=== PATIENT | female | born 1990 | race Hispanic/Latino ===

== ENCOUNTER 2020-08-09 15:09 | Emergency (ER) | payer OTHER, SELFPAY ==
--- OUTSIDE RECORDS SUMMARY | 2020-08-09 15:17 | XMS REPORT | Continuity of Care Document ---
:1990 Author Organization [facility] t Address [address] [place] [address] Care Team Providers Name Role Phone Darcy Carbone Attending Clinician [phone] Problems This patient has no known problems. Allergies, Adverse Reactions, Alerts This patient has no known allergies or adverse reactions. Medications Ordered Filled Start Stop Current Ordering Indication Dosage Frequency Signature Comments Components Source Medication Medication Date Date Medication? Clinician (SIG) Name Name Amoxicillin Amoxicillin 2020-0 2020- Yes Sha [address] [facility] 05[facility]17 09[facility]04 [facility] 00:00: 00:00 [facility] Zoloft Zoloft Yes Sha 1 tablet [facility] Atenolol Atenolol Yes Sha [address] [facility] Restasis Restasis Yes Sha [address] [facility] [place] [facility] Sertraline Sertraline Yes Sha TAKE ONE [facility] HCl HCl [facility] TABLET BY [facility] - MOUTH ONCE [facility] DAILY [facility] Clin[facility] Melatonin Melatonin Yes Sha as [facility] Procedures This patient has no known procedures. Encounters Start End Encounter Admission Attending Care Care Encounter Source Date/Time Date/Time Type Type Clinicians Facility Department ID 2020-08-08 2020-08-08 Outpatient [facility] [id number] Outpat[facility] ent Clinics 2020-06-23 2020-06-23 Outpatient [facility] [id number] [facility]00 [facility] Outpati ent Clinics 2020-05-17 2020-05-17 [facility] [id number] [address] 08:20:00 08:20:00 [facility] Outpati ent Clinics 2020-04-18 2020-04-18 Office Akinsi, [facility] [id number] 14:45:09 16:08:37 Visit Darcy Osorio [employer] [id number] [facility] [id number] MATERNAL [id number] & CHILD [address] [place] [address] 2020-03-23 2020-03-23 [facility] [id number] [address] 14:15:00 14:15:00 t [employer] [facility] Outpati ent Clinics 2019-12-16 2019-12-16 [facility] [id number] 10:15:00 10:15:00 t [employer] [facility] Medicine Outpati ent Clinics 2019-09-14 2019-09-14 [facility] [id number] 11:15:00 11:15:00 t [employer] [facility] Medicine Outpati ent Clinics 2019-03-17 2019-03-17 [facility] [id number] 09:15:00 09:15:00 t [employer] [facility] Medicine Outpati ent Clinics 2018-09-08 2018-09-08 [facility] [id number] 09[facility]15:00 09:15:00 t [employer] [facility] 2018-03-19 2018-03-19 Outpatient Perez Rondon [id number] 15:15:00 15:15:00 t [employer] [facility] [place] [employer] [facility] ent [facility] Results This patient has no known results.
--- OUTSIDE RECORDS SUMMARY | 2020-08-09 15:18 | XMS REPORT ---
:1990 Author Organization [facility] Address [address], 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, bilateral complete Problem Varicose veins I86.8 Active 841731202 Problem Pulmonary stenosis I37.0 Active 84109964 Problem Thrombocytopenia D69.6 Active 640376754 Problem Hyperlipidemia E78.5 Active 08389941 Problem Splenomegaly R16.1 Active 77516344 Problem Learning F81.9 Active 8622546 disabilities Problem Atrial septal Q21.1 Active 74148424 defect Problem Murmur R01.1 Active 437187537 Problem Osteoporosis M81.0 Active 97769194 Problem Anxiety F41.9 Active 63759768 Problem Hypertension I10 Active 80817123 ALLERGIES No Known Allergies ENCOUNTERS from 1990 to 2020-08-08 Encounter Location Date Provider Diagnosis [facility] [address] 16 Jul, 2020 [place] [address] IMMUNIZATIONS No Information SOCIAL HISTORY Tobacco Use: Social History Observation Description Date Details (start date - stop date) Never Smoker Sex Assigned At : Social History Observation Description Sex Assigned At Unknown PHQ9 Question Answer Notes Little interest or pleasure in doing things Several days Feeling down, depressed, or hopeless Several days Trouble falling or staying asleep or sleeping too much Sever al days Feeling tired or having little energy Several days Poor appetite or overeating Several days Feeling bad about yourself, or that you are a failure, or [place] ve Not at all let yourself or your family down Trouble concentrating on things, such as reading the newspap er Not at all or watching television Moving or speaking so slowly that other people could have No t at all noticed; or the opposite, being so fidgety or restless that you have been moving around a lot more than usual Total Score 5 Interpretation Mild Depression Thoughts that you would be better off or of hurting Not at all yourself in some way Alcohol Screen Question Answer Notes Did you have a drink containing alcohol in the past year? No Points 0 Interpretation Negative Tobacco Use/Smoking Question Answer Notes Are you a never smoker REASON FOR REFERRAL No Information VITAL SIGNS No information MEDICATIONS Medication SIG (Take, Route, Frequency, Notes Start Date End Ranjan e Status Duration) Restasis 0.05 % 1 drop into affected eye Active Ophthalmic Twice a day Zoloft 100 MG 1 tablet Orally Once a day for Active 90 days Atenolol 50 MG 1 tablet Orally Once a day Active Melatonin 10 MG as directed Orally A ctive Sertraline HCl 100 MG TAKE ONE TABLET BY MOUTH ONCE Active DAILY for 30 PROCEDURES No Information RESULTS No Results REASON FOR VISIT Appointment MEDICAL (GENERAL) HISTORY Type Description Date Medical History Tetralogy of Fallot Medical History Pulmonary stenosis Medical History Atrial septal defect Medical History Hypertension Medical History Anxiety Medical History Cleft palate and lip, bilateral complete Medical History Murmur Medical History Varicose veins Medical History Osteoporosis Medical History Thrombocytopenia Medical History Abnormal LFTs Medical History Hyperlipidemia Medical History Splenomegaly Surgical History cleft lip repair x4-5 Surgical History cleft palate repair x4-5 Surgical History BT SHunt replacement/Complete surgical r epair age 4 [facility] Surgical History Cardiac Cath with Stent Gasper 09/2006 Surgical History Pulmonary Valve replacement Gasper khans 2011 Surgical History Heart surgeries x2 Surgical History Heart Cath x2 Goals Section No Information Health Concerns No Information MEDICAL EQUIPMENT No Information MENTAL STATUS No Information FUNCTIONAL STATUS No Information ASSESSMENTS No Information PLAN OF TREATMENT Medication Medication Name Sig Start Date Stop Date Zoloft 100 MG 1 tablet Orally Once a day for 90 days Next Appt Details Provider Name:Sha Nettles, 2020-08-09 0 1:40:00 PM, [address], [address], [place], [address], Provider Name:Sha Nettles, 2020-09-28 0 8:30:00 AM, [address], [address], [place], [address],
--- OUTSIDE RECORDS SUMMARY | 2020-08-09 15:18 | XMS REPORT ---
:1990 Author Organization [facility] Address [address], 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, bilateral complete Problem Varicose veins I86.8 Active 833058408 Problem Pulmonary stenosis I37.0 Active 04451191 Problem Thrombocytopenia D69.6 Active 162560399 Problem Hyperlipidemia E78.5 Active 73679309 Problem Splenomegaly R16.1 Active 16148719 Problem Learning F81.9 Active 5854644 disabilities Problem Atrial septal Q21.1 Active 82868325 defect Problem Murmur R01.1 Active 489435556 Problem Osteoporosis M81.0 Active 37700218 Problem Anxiety F41.9 Active 63698874 Problem Hypertension I10 Active 92267706 ALLERGIES No Known Allergies ENCOUNTERS from 1990 to 2020-06-23 Encounter Location Date Provider Diagnosis [facility] [address] [place], Sha Nettles Hyperlipi demia E78.5 ; [address] [place], Anxiety F4 1.9 ; [place] [address] Thrombocytopen ia D69.6 ; Abnormal LFTs R 94.5 and Learning disabi lities F81.9 IMMUNIZATIONS No Information SOCIAL HISTORY Tobacco Use: [...] REASON FOR REFERRAL No Information VITAL SIGNS Height 67 in Jun, Weight 158.0 lbs Jun, Temperature 97.5 degrees Fahrenheit Jun, BMI 24.74 kg/m2 Jun, Oximetry 94 % Jun, Respiratory Rate 18 /min Jun, Blood pressure systolic 109 mm Hg Jun, Blood pressure diastolic 55 mm Hg Jun, MEDICATIONS Medication SIG (Take, Route, Frequency, Start Date End Date Status Duration) Zoloft 100 MG 1 tablet Orally Once a day for 90 Active days Restasis 0.05 % 1 drop into affected eye Ophthalmic Active Twice a day Melatonin 10 MG as directed Orally Active Sertraline HCl 100 MG TAKE ONE TABLET BY MOUTH ONCE DAILY Active for 30 Atenolol 50 MG 1 tablet Orally Once a day Active PROCEDURES No Information RESULTS No Results REASON FOR VISIT 3 mth f/u [place] MEDICAL (GENERAL) HISTORY Type Description Date Medical [...] SHunt replacement/Complete surgical r epair age 4 [facility] Surgical History Cardiac Cath with Stent Gasper 09/2006 Surgical History Pulmonary Valve replacement Gasper khan's 2011 Surgical History Heart surgeries x2 Surgical History Heart Cath x2 Goals Section No Information Health Concerns No Information MEDICAL EQUIPMENT No Information MENTAL STATUS No Information FUNCTIONAL STATUS No Information ASSESSMENTS Encounter Date Diagnosis Notes Jun, Anxiety (ICD-10 - F41.9) Jun, Hyperlipidemia (ICD-10 - E78.5) Jun, Abnormal LFTs (ICD-10 - R94.5) Jun, Thrombocytopenia (ICD-10 - D69.6) Jun, Learning disabilities (ICD-10 - F81.9) PLAN OF TREATMENT Medication Medication Name Sig Start Date Stop Date Zoloft 100 MG 1 tablet Orally Once a day for 90 days Treatment Notes Assessment Notes Clinical Notes Hyperlipidemia Diet-Controlled. Education given. Anxiety Refill given. Education given. Side effe ct panel discussed. , -- Anxiety Education: Anxie ty is a feeling of anxiousness or nervousness. B eing extremely anxious or worried on most day s for 6 months or longer is not normal. This is a type of anxiety disorder. This disorder can m dannielle it hard to do everyday tasks. Other types o f anxiety include: post traumatic stress d isorder, panic disorder, and phobias. Symptoms of anxiety may include: feeling worried or on the e dge, trouble sleeping, or forgetting things. Feelings of stomach aches or chest tightness is a nother common symptom. Medicine, exercise, and other treatments like counseling, talk therapy , yoga, and massages maybe necessary to treat th is disorder. Thrombocytopenia Asymptomatic. In process of making aptt with [facility] for further evaluation. Abnormal LFTs ROR Signed. Learning disabilities Will go to Social Security office and attempt to get back on Medicaid. Next Appt Details 09/2020 [facility] Reason: Provider Name:Sha Nettles, 2020-09-28 0 8:30:00 AM, [address], [address], [place], [address],
--- OUTSIDE RECORDS SUMMARY | 2020-08-09 15:18 | XMS REPORT ---
:1990 Author Organization [employer] Care Team Providers Name Role Phone Sha Nettles Provider Role Unavailable Allergies, Adverse Reactions, Alerts Substance Reaction Event Type N.K.D.A. Info Not Available Non Drug Allergy Problems Problem Type Condition Code Onset Dates Condition Statu s Problem Splenomegaly R16.1 Active Problem Pulmonary stenosis I37.0 Active Problem Varicose veins I86.8 Active Problem Hyperlipidemia E78.5 Active Problem Hypertension I10 Active Problem Learning disabilities F81.9 Active Problem Murmur R01.1 Active Problem Thrombocytopenia D69.6 Active Problem Anxiety F41.9 Active Problem Osteoporosis M81.0 Active Assessment Rupture of left tympanic membrane H72.92 Active Problem Abnormal LFTs R94.5 Active Problem Cleft palate and lip, bilateral Q37.8 Active complete Assessment Infection of left ear H66.92 Active 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 Problem Atrial septal defect Q21.1 Active Medications Medication Code Code Instructions Start End Status Dosage System Date Date Atenolol [facility] 53396874088 50 MG Orally Active 1 tabl et Once a day Zoloft [facility] 37264112735 100 MG Orally Active 1 tabl et Once a day Sertraline HCl [facility] 77590151962 100 MG Active TAKE ONE TABLET BY MOUTH ONCE DAILY Melatonin [facility] 18971786358 10 MG Orally Active as di rected Amoxicillin-Pot [facility] 06789667048 875-125 MG May 17May Active 1 tablet Clavulanate Orally every 12 2019 04, hrs 2020 Restasis [facility] 41048101153 0.05 % Active 1 drop into Ophthalmic affected Twice a day eye Results No Known Results Summary Purpose [employer] Submission
[2020-08-09 16:30] LABS: Absolute Lymphocytes (CBC) 0.7 K/uL (0.7-4.9); Basophils % 0.4 % (0-1.3); Hematocrit 37.1 % (36.0-45.0); Lymphocytes % 14.7 % (15.3-44.8); MPV 9.9 fL (7.6-11.3); RBC Red Blood Cell Count 4.14 M/uL (3.86-4.86)
[2020-08-09 16:45] LABS: BUN Blood Urea Nitrogen 9 mg/dL (7-18); Bicarbonate 30 mmol/L (21-32); Glucose Level 103 mg/dL (74-106); Potassium 4.2 mmol/L (3.5-5.1); Sodium Level 140 mmol/L (136-145)
[2020-08-09 17:11] LABS: Blood Morphology Comment NOT SEEN (NOT SEEN); Platelet Estimate DECR; White Blood Cell Scan OK (OK)
--- NOTE | 2020-08-09 17:14 | RAD REPORT ---
EXAM DESCRIPTION: CT - FC CLINICAL HISTORY: evaluate abscess Pain and swelling to left face. COMPARISON: No comparisons TECHNIQUE: Axial 2 mm thick images of the face were obtained with sagittal and coronal reconstructio n images. All CT scans are performed using dose optimization technique as appropriate and may include automated exposure control or mA/KV adjustment according to patient size. FINDINGS: Subcutaneous abscess is seen along the left inferior face soft tissues measuring 22 x 17 m m. This appears to extend prominent rotated left posterior maxillary molar. The adjacent skin appears thickened and inflammatory changes are present in the fat. Several mildly prominent nodes are present in the submental region, likely reactive. IMPRESSION: Left-sided subcutaneous abscess is present measuring 22 x 17 mm along the inferior face. Source of this abscess appears to be significantly eroded posterior left maxillary molar. Direct insp ection would be suggested.
--- NOTE | 2020-08-09 17:21 | EDPHYS ---
Physician Documentation [facility] Name: Oneyda Jaquez Age: 30 yrs Sex: Female : 1990 Arrival Date: 08/09/2020 Time: 15:10 Bed 13 Private MD: Tho Sha ED Physician Ru Stevens HPI: 08/09 16:02 This 30 yrs old Female presents to ER via Ambulatory with complaints of Facial kb Swelling. 16:02 the patient presents with a swollen area of the left jaw. Description: erythematous, kb swollen, warm. Onset: The symptoms/episode began/occurred 1 week(s) ago. Possible cause(s): unknown. Associated signs and symptoms: Pertinent positives: erythema, swelling, Pertinent negatives: discharge, drainage, foreign body sensation, fever, headache, nausea, shortness of breath, vomiting. Modifying factors: the symptoms are alleviated by nothing, the symptoms are aggravated by pressure. Severity of symptoms: At their worst the symptoms were moderate, in the emergency department the symptoms are unchanged. The patient has not experienced similar symptoms in the past. The patient has not recently seen a physician. Historical: - Allergies: 15:40 No Known Allergies; ss - PMHx: 15:40 tetralogy of fallot; ss - PSHx: 15:40 open heart surgery; facial reconstruction; ss - Immunization history:: Flu vaccine is not up to date. - Social history:: Smoking status: Patient denies any tobacco usage or history of. ROS: 16:01 Constitutional: Negative for fever, chills, and weight loss, Cardiovascular: Negative kb for chest pain, palpitations, and edema, Respiratory: Negative for shortness of breath, cough, wheezing, and pleuritic chest pain, Abdomen/GI: Negative for abdominal pain, nausea, vomiting, diarrhea, and constipation, Back: Negative for injury and pain, MS/Extremity: Negative for injury and deformity, Neuro: Negative for headache, weakness, numbness, tingling, and seizure. 16:01 Skin: Positive for abscess, of the left jaw. Exam: 16:01 Constitutional: This is a well developed, well nourished patient who is awake, alert, kb and in no acute distress. Chest/axilla: Normal chest wall appearance and motion. Nontender with no deformity. No lesions are appreciated. Cardiovascular: Regular rate and rhythm with a normal S1 and S2. No gallops, murmurs, or rubs. Normal PMI, no JVD. No pulse deficits. Respiratory: Lungs have equal breath sounds bilaterally, clear to auscultation and percussion. No rales, rhonchi or wheezes noted. No increased work of breathing, no retractions or nasal flaring. Abdomen/GI: Soft, non-tender, with normal bowel sounds. No distension or tympany. No guarding or rebound. No evidence of tenderness throughout. MS/ Extremity: Pulses equal, no cyanosis. Neurovascular intact. Full, normal range of motion. Neuro: Awake and alert, GCS 15, oriented to person, place, time, and situation. Cranial nerves II-XII grossly intact. Motor strength 5/5 in all extremities. Sensory grossly intact. Cerebellar exam normal. Normal gait. 16:01 Skin: abscess, that is moderate sized, of the left jaw, with induration. Vital Signs: 15:38 BP 106 / 68; Pulse 70; Resp 16; Temp 97.0; Pulse Ox 100% ; Height 5 ft. 7 in. (170.18 ss cm); Pain 10/10; MDM: 15:46 Patient medically screened. kb 16:02 Data reviewed: vital signs, nurses notes. Data interpreted: Pulse oximetry: on room air kb is 100 %. Interpretation: normal. 17:19 Counseling: I had a detailed discussion with the patient and/or guardian regarding: the kb historical points, exam findings, and any diagnostic results supporting the discharge/admit diagnosis, lab results, radiology results, the need for outpatient follow up, a dentist, to return to the emergency department if symptoms worsen or persist or if there are any questions or concerns that arise at home. ED course: Discussed diagnostrics with pt. Pt will follow up with dentist.. 08/09 15:59 Order name: CBC with Diff; Complete Time: 17:12 kb 08/09 15:59 Order name: Basic Metabolic Panel; Complete Time: 16:48 kb 08/09 15:58 Order name: CT Maxillofacial W/cont; Complete Time: 17:16 kb 08/09 17:11 Order name: CBC Smear Scan; Complete Time: 17:12 EDMS 08/09 15:59 Order name: IV Start; Complete Time: 16:25 kb Administered Medications: 17:40 Drug: Augmentin 875 mg Route: PO; em 17:43 Follow up: Response: Medication administered at discharge. em 17:40 Drug: [place] 5 mg-325 mg 1 tabs Route: PO; em 17:43 Follow up: Response: Medication administered at discharge. em Disposition: 08/10 08:27 Co-signature as Attending Physician, Ru Stevens MD I agree with the assessment and kdr plan of care. Disposition: 08/09/20 17:20 Discharged to Home. Impression: Periapical abscess without sinus. - Condition is Stable. - Discharge Instructions: Dental Pain, [id number], Dental Abscess, [id number]. - Prescriptions for Augmentin 875- 125 mg Oral Tablet - take 1 tablet by ORAL route every 12 hours for 10 days; 20 tablet. Diclofenac Sodium 75 mg Oral Tablet, Delayed Release (E.C.) - take 1 tablet by ORAL route 2 times per day As needed; 30 tablet. - Medication Reconciliation Form, Thank You Letter, Antibiotic Education, Prescription Opioid Use form. - Follow up: Emergency Department; When: As needed; Reason: Worsening of condition. Follow up: Private Physician; When: 2 - 3 days; Reason: Recheck today's complaints, Continuance of care, Re-evaluation by your physician. Signatures: Dispatcher [employer] EDKindra Sears, TOUCH UP CARVER-C TOUCH UP CARVER-Ru Valadez MD MD [facility] Brett Rinaldi, Shabana Allison RN, RN RN ss Corrections: (The following items were deleted from the chart) 08/09 17:44 17:20 08/09/2020 17:20 Discharged to Home. Impression: Periapical abscess without em sinus. Condition is Stable. Forms are Medication Reconciliation Form, Thank You Letter, Antibiotic Education, Prescription Opioid Use. Follow up: Emergency Department; When: As needed; Reason: Worsening of condition. Follow up: Private Physician; When: 2 - 3 days; Reason: Recheck today's complaints, Continuance of care, Re-evaluation by your physician. kb
--- NOTE | 2020-08-09 17:21 | ER ---
Nurse's Notes [facility] Name: Oneyda Jaquez Age: 30 yrs Sex: Female : 1990 Arrival Date: 08/09/2020 Time: 15:10 Bed 13 Private MD: Sha Nettles Diagnosis: Periapical abscess without sinus Presentation: 08/09 15:38 Chief complaint: Patient states: Left jaw pain, redness, and swelling since Saturday. No ss fever or drainage at this time. Sent by eval by Dr. Nettles. Coronavirus screen: Client denies travel out of the [place] in the last 14 days. At this time, the client does not indicate any symptoms associated with coronavirus-19. Ebola Screen: Patient denies travel to an Ebola-affected area in the 21 days before illness onset. Initial Sepsis Screen: Does the patient meet any 2 criteria? No. Patient's initial sepsis screen is negative. Does the patient have a suspected source of infection? Yes: Skin breakdown/wound. Risk Assessment: Do you want to hurt yourself or someone else? Patient reports no desire to harm self or others. Onset of symptoms was August 05, 2020. 15:38 Method Of Arrival: Ambulatory ss 15:38 Acuity: HARJINDER 3 ss Historical: - Allergies: 15:40 No Known Allergies; ss - PMHx: 15:40 tetralogy of fallot; ss - PSHx: 15:40 open heart surgery; facial reconstruction; ss - Immunization history:: Flu vaccine is not up to date. - Social history:: Smoking status: Patient denies any tobacco usage or history of. Screenin:04 Abuse screen: Denies threats or abuse. Nutritional screening: No deficits noted. em Tuberculosis screening: No symptoms or risk factors identified. Fall Risk None identified. Assessment: 16:15 General: Appears in no apparent distress. comfortable, Behavior is calm, cooperative, em Reports chills for Denies fever. Pain: Complains of pain in left jaw Pain currently is 10 out of 10 on a pain scale. Pain began 1 week ago. Neuro: Level of Consciousness is awake, alert, obeys commands, Oriented to person, place, time, situation. Cardiovascular: Capillary refill < 3 seconds Patient's skin is warm and dry. Respiratory: Airway is patent Respiratory effort is even, unlabored, Respiratory pattern is regular, symmetrical. GI: Abdomen is flat, Patient currently denies nausea, vomiting. Derm: Skin is intact, is healthy with good turgor, Skin is pink, warm \T\ dry. Musculoskeletal: Capillary refill < 3 seconds, Range of motion: intact in all extremities. 17:30 Reassessment: Patient appears in no apparent distress at this time. Patient and/or em family updated on plan of care and expected duration. Pain level reassessed. Patient is alert, oriented x 3, equal unlabored respirations, skin warm/dry/pink. Vital Signs: 15:38 BP 106 / 68; Pulse 70; Resp 16; Temp 97.0; Pulse Ox 100% ; Height 5 ft. 7 in. (170.18 ss cm); Pain 10/10; ED Course: 15:10 Patient arrived in ED. ag5 15:10 Sha Nettles DO is Private Physician. ag5 15:39 Triage completed. ss 15:40 Kindra Baeza FNP-C is [facility]. kb 15:40 Ru Stevens MD is Attending Physician. kb 15:41 Arm band placed on Patient placed in an exam room, on a stretcher. ss 15:42 Brett Rinaldi, JOSEPHINE is Primary Nurse. em 16:04 Patient has correct armband on for positive identification. Bed in low position. Call em light in reach. Side rails up X2. 16:15 Initial lab(s) drawn, by me, sent to lab. Inserted saline lock: 22 gauge in left em antecubital area, using aseptic technique. Blood collected. 16:58 CT Maxillofacial W/cont In Process Unspecified. EDMS 17:42 No provider procedures requiring assistance completed. IV discontinued, intact, em bleeding controlled, No redness/swelling at site. Pressure dressing applied. Administered Medications: 17:40 Drug: Augmentin 875 mg Route: PO; em 17:43 Follow up: Response: Medication administered at discharge. em 17:40 Drug: Ferrum 5 mg-325 mg 1 tabs Route: PO; em 17:43 Follow up: Response: Medication administered at discharge. em Outcome: 17:20 Discharge ordered by . kb 17:42 Discharged to home ambulatory, with family. em 17:42 Condition: stable 17:42 Discharge instructions given to patient, family, Instructed on discharge instructions, follow up and referral plans. medication usage, Demonstrated understanding of instructions, follow-up care, medications, Prescriptions given X 2. 17:44 Patient left the ED. em Signatures: Dispatcher [employer] Kindra García, BENEDICTO-Devon DIANE-Brett Jean RN RN Shabana Morton RN RN Nish Lorenz ag5
[2020-08-09] MEDS ORDERED: HYDROCODONE/APAP 5/325 MG TAB ONE (17:47)
[2020-08-09] MEDS ORDERED: AMOX/K CLAV 875 MG TAB ONE (17:47)
[2020-08-10 01:38] VITALS: BP 106/68; TEMP 97; O2SAT 100
== END 2020-08-09 17:44 | disposition home or self-care (01) ==
LOC: ER 15:09
DX: K04.7 Periapical abscess without sinus (principal)
CPT/HCPCS: 36415; 70487; 80048; 82565; 85025; 99284